=== PATIENT | male | born 1940 | race Caucasian/White ===

== ENCOUNTER 2018-12-08 12:25 | Inpatient (IN) | payer OTHER, MEDICAID ==
[~2018-12-08] VITALS: Ht 160 cm; Wt 69.4 kg
[2018-12-08 12:26] VITALS: BP 176/73
[2018-12-08] MEDS ORDERED: NACL 0.9% 1,000 ML IV ONE (12:35)
--- NOTE | 2018-12-08 12:35 | NUR ---
PATIENT AMBULATED TO BED 5.
[2018-12-08 13:06] LABS: BASOPHILS % (AUTO) 0.1 % (0.0-2.0); HEMATOCRIT 49.4 % (36-52); HEMOGLOBIN 16.3 g/dL (12.0-18.0); LYMPHOCYTES # (AUTO) 0.7 K/uL (2.0-11.5); LYMPHOCYTES % (AUTO) 4.5 % (20.5-51.1); MEAN CORPUSCULAR HEMOGLOBIN 29 pg (27-31); MEAN CORPUSCULAR HGB CONC 33 g/dL (33-37); MONOCYTES % (AUTO) 6.2 % (1.7-9.3); NEUTROPHILS # (AUTO) 14.8 K/uL (1.8-7.7); NEUTROPHILS % (AUTO) 89.2 % (42.2-75.2); PLATELET COUNT (AUTO) 155 K/uL (140-450); RED BLOOD CELL COUNT(AUTO) 5.56 MIL/uL (4.20-6.10); RED CELL DISTRIBUTION WIDTH 14.4 % (11.6-13.7); WHITE BLOOD COUNT (AUTO) 16.6 K/uL (4.8-10.8)
--- NOTE | 2018-12-08 13:06 | NUR ---
referred by pmd for ultrasound. BIB c/o abdominal distention x 2 days. DENIES N/V. hiccups last bowel movement yesterday , denies straining.hx--dm, mi (2018), htn.ABD: DISTENTION C/O ABDOMINAL PAIN OF 9/10 AT THIS TIME. PATIENT POSITIONED FOR COMFORT; HOB ELEVATED; BEDRAILS UP X1; BED DOWN. ER MD MADE AWARE OF PT STATUS.
--- NOTE | 2018-12-08 13:33 | NUR ---
BP / NOTIFIED DR LA.
[2018-12-08 13:37] LABS: ANION GAP 21.4 (8-16); CARBON DIOXIDE 19.3 mmol/L (21-32); CHLORIDE 89 mmol/L (98-107); POTASSIUM 4.7 mmol/L (3.5-5.1); SODIUM SERUM 125 mmol/L (136-145)
[2018-12-08 13:38] LABS: GLUCOSE 633 mg/dL (74-106)
[2018-12-08 13:40] LABS: CREATININE 1.9 mg/dL (0.7-1.3); UREA NITROGEN, BLOOD 43 mg/dL (7-18)
[2018-12-08 13:41] LABS: ALBUMIN 3.3 g/dL (3.4-5.0); ASPARTATE AMINOTRANSFERASE 120 U/L (15-37)
[2018-12-08 13:46] LABS: LIPASE 545 U/L (73-393)
--- NOTE | 2018-12-08 14:13 | NUR ---
X RAY AT BEDSIDE
[2018-12-08] MEDS ORDERED: INSULIN REGULAR, HUMAN 100 UNIT/ML VIAL IV ONE (14:25)
[2018-12-08] MEDS ORDERED: MORPHINE SULFATE 4 MG/ML SYR IVP ONE (15:00)
--- NOTE | 2018-12-08 15:30 | NUR ---
UNABLE TO UPDATE PT'S MEDICATION RECONCILIATION. FAMILY MEMBER WILL BRING LIST OF MEDICATIONS SOON POSSIBLE.
--- NOTE | 2018-12-08 15:30 | NUR ---
Patient appears to be resting comfortably in bed. BP 147/92, P 125/MINS , Respirations even and unlabored. ABD PAIN 4/10 AT THIS TIME. WILL CONTINUE TO MONITOR.
[2018-12-08] MEDS ORDERED: DEXTROSE 50% 50 ML SYR IVP PRN (16:15)
[2018-12-08] MEDS ORDERED: DOCUSATE SODIUM 250 MG GELCAP PO PRN (16:20)
[2018-12-08] MEDS ORDERED: LORazepam 2 MG/ML VIAL IVP PRN (16:20)
[2018-12-08] MEDS ORDERED: POTASSIUM CHLORIDE 40 MEQ, LIDOCAINE 1% 25 MG in NACL 0.9% 250 ML IV PRN (16:20)
[2018-12-08] MEDS ORDERED: ACETAMINOPHEN 325 MG TAB PO PRN (16:20)
[2018-12-08] MEDS ORDERED: MAG SULF 2000 MG/WATER PREMIX 50 ML IV PRN (16:20)
[2018-12-08] MEDS ORDERED: IPRATROPIUM 0.02% 0.5 MG/2.5 ML NEBU INH PRN (16:20)
[2018-12-08] MEDS ORDERED: ZOLPIDEM 5 MG TAB PO PRN (16:20)
[2018-12-08] MEDS ORDERED: diphenhydrAMINE 50 MG/ML VIAL IVP PRN (16:20)
[2018-12-08] MEDS ORDERED: guaiFENesin DM 200/20 MG-10 ML 10 ML UDC PO PRN (16:20)
[2018-12-08] MEDS ORDERED: ONDANSETRON 4 MG/2 ML VIAL IVP PRN (16:20)
[2018-12-08] MEDS ORDERED: ALBUTEROL 0.083% 2.5 MG/3 ML NEBU INH PRN (16:20)
[2018-12-08] MEDS ORDERED: POTASSIUM CHLORIDE 10 MEQ TABER PO PRN (16:20)
[2018-12-08] MEDS ORDERED: BISACODYL 10 MG SUPP RC PRN (16:20)
[2018-12-08] MEDS ORDERED: SODIUM PHOSPHATE 118 ML ENEM RC PRN (16:20)
[2018-12-08] MEDS ORDERED: ACETAMINOPHEN 650 MG SUPP RC PRN (16:20)
[2018-12-08] MEDS ORDERED: MAGNESIUM OXIDE 400 MG TAB PO PRN (16:20)
--- NOTE | 2018-12-08 16:22 | NUR ---
PATIENT ARRIVED FROM ER VIA WHEELCHAIR. PATIENT AMBULATED TO BED ON STEADY GAIT. PATIENT AOX4, POLISH SPEAKING. SHIMA BROUGHT IN HIS MEDICATIONS. RESPIRATIONS EVEN AND UNLABORED ON ROOM AIR. NO S/S OF DISTRESS OR SOB NOTED. PATIENT DENIES PAIN AT THE MOMENT. ORIENTED PATIENT TO ROOM, CALL LIGHT, BATHROOM, AND TV. MRSA SCREENING DONE. UPDATED BOARD. VERBALIZED PLAN OF CARE TO PATIENT AND HIS . THEY VERBALIZED UNDERSTANDING. SAFETY PRECAUTIONS IN PLACE, CALL LIGHT WITHIN REACH, WILL CONTINUE TO MONITOR PATIENT.
[2018-12-08 16:35] VITALS: BP 167/94
[2018-12-08] MEDS ORDERED: CLOP75TA55 PO (16:51)
[2018-12-08] MEDS ORDERED: CHOL200072 PO (16:51)
[2018-12-08] MEDS ORDERED: INSU100S22 SUBQ (16:51)
[2018-12-08] MEDS ORDERED: SIMV80TA1 PO (16:51)
[2018-12-08] MEDS ORDERED: FINA5TAB5 PO (16:51)
[2018-12-08] MEDS ORDERED: ESCI10TA61 PO (16:51)
[2018-12-08] MEDS ORDERED: ZET10 PO (16:51)
[2018-12-08] MEDS ORDERED: METO25TE2 PO (16:51)
[2018-12-08] MEDS ORDERED: CANA100T PO (16:51)
[2018-12-08] MEDS ORDERED: TAMS0.4C96 PO (16:51)
[2018-12-08] MEDS: glyBURIDE 5 MG TAB PO SCH (17:00)
--- NOTE | 2018-12-08 17:07 | NUR ---
MED RECON DONE. PAGED DR. VELAZCO FOR FURTHER ADMIT ORDERS. WILL WAIT FOR HIS CALL BACK. PATIENT RESTING IN BED, VS WNL. WILL CONTINUE TO MONITOR PATIENT.
[2018-12-08] MEDS: BLOOD GLUCOSE MONITORING 1 DEV DEV FS SCH ×2 (17:17→20:55)
--- NOTE | 2018-12-08 17:34 | NUR ---
[facility], PATIENT'S PREFERRED PHARMACY AT [phone] TO VERIFY VACCINATIONS. PNA VACCINE RECEIVED IN 2019, NO RECORD OF FLU VACCINE. RN VERBALIZED UNDERSTANDING.
[2018-12-08] MEDS: INSULIN LISPRO SLIDING SCALE 100 UNITS/ML VIAL SUBQ PRN ×2 (17:51→21:07)
--- NOTE | 2018-12-08 17:51 | NUR ---
BLOOD SUGAR 412, COVERAGE GIVEN. PATIENT TOLERATED IT WELL. CALLED DIETARY FOR DIET ORDER. PATIENT HAS NO COMPLAINTS AT THIS TIME. SAFETY PRECAUTION IN PLACE, CALL LIGHT WITHIN REACH, WILL CONTINUE TO MONITOR PATIENT.
--- NOTE | 2018-12-08 17:55 | NUR ---
PAGED DR. VELAZCO TO FOLLOW UP. DR DRIVER CASINO ENFORCEMENT AGENT. DR DRIVER CALLED BACK, DIET ORDER IN, INFORMED MD ABOUT PATIENT'S BLOOD SUGAR. WILL CONTINUE TO MONITOR PATIENT.
--- NOTE | 2018-12-08 18:35 | NUR ---
ASSESSMENT COMPLETED, LANGUAGE PHONE USED, [employer] TECHNICIAN GILBERT # [id number]. PATIENT'S EXWIFE BROUGHT HOME MEDICATIONS. SHE LEFT TO GO HOME. CALLED HER TO COME MANAGER LOSS PREVENTION MEDICATIONS, SHE STATED SHE WILL BE BACK TOMORROW TO PICK THEM UP. RN VERBALIZED UNDERSTANDING. PATIENT'S MEDICATIONS BROUGHT TO PHARMACY, PATIENT AWARE AND AGREEABLE. WILL CONTINUE TO MONITOR PATIENT.
[2018-12-08] MEDS ORDERED: NACL 0.45% 1,000 ML IV SCH (19:00)
--- NOTE | 2018-12-08 19:24 | NUR ---
REPORT GIVEN TO HOMICIDE DETECTIVE RN AT BEDSIDE FOR CONTINUITY OF CARE. DR VELAZCO IN TO SPEAK TO THE PATIENT. PATIENT IN STABLE CONDITION.
--- NOTE | 2018-12-08 19:25 | NUR ---
RECEIVED PT IN STABLE CONDITION FROM AM NURSE. AWAKE, ALERT AND ORIENTED X4. ON MED SURG. WITH NO ACUTE DISTRESS NOR DISCOMFORT NOTED. HAS HL ON THE RT AC g#20 ,CLEAR AND PATENT. PLAN OF CARE DISCUSSED AND VERBALIZED UNDERSTANDING. BED ON LOW POSITION, SIDE RAILS UP X2. CALL LIGHT AND URINAL PLACED WITHIN EASY REACH. WILL CONTINUE TO MONITOR.
[2018-12-08 20:40] VITALS: BP 161/97
[2018-12-08] MEDS: METOPROLOL 25 MG TAB PO SCH (20:43)
[2018-12-08 20:44] LABS: APPEARANCE,URINE CLEAR (CLEAR); BILIRUBIN,URINE NEGATIVE (NEGATIVE); BLOOD, URINE 1+ (NEGATIVE); COLOR,URINE YELLOW (YELLOW); LEUKOCYTE ESTERASE ,URINE NEGATIVE (NEGATIVE); NITRITE, URINE NEGATIVE (NEGATIVE); PH,URINE 5.5 (5.0-9.0); UGLUCOSE 3+ (NEGATIVE)
[2018-12-08] MEDS: NACL 0.9% 1,000 ML IV SCH (20:55)
[2018-12-08 20:59] LABS: RBC,URINE 0-5 /HPF (0-5); WBC,URINE NONE SEEN /HPF (0-5)
[2018-12-08] MEDS ORDERED: INSULIN LANTUS 100 UNITS/ML 10 ML VIAL SUBQ SCH (21:00)
[2018-12-08] MEDS ORDERED: SIMVASTATIN 40 MG TAB PO SCH (21:00)
--- NOTE | 2018-12-08 21:07 | NUR ---
BLOOD SUGAR WAS CHECKED RESULT 341. INSULIN COVERAGE HUMALOG 8 UNITS SUBQ GIVEN. AND ALSO THE SCHEDULED LANTUS. PT PROVIDED DINNER FOR HE HASN'T EATEN YET. WILL CONTINUE TO MONITOR.
--- NOTE | 2018-12-08 21:30 | NUR ---
PT DONE EATING . TOLERATED WELL. NO C./O ANY PAIN NOTED. WILL CONTINUE TO MONITOR.
--- NOTE | 2018-12-08 23:00 | NUR ---
MADE ROUNDS. ASLEEP. NO S/S OF ANY DISCOMFORT NOR PAIN NOTED.
[2018-12-09] VITALS: BP 158/82
--- NOTE | 2018-12-09 01:30 | NUR ---
MADE ROUNDS. NO S/S OF ANY DISTRESS NOR DISCOMFORT NOTED. WILL CONTINUE TO MONITOR.
--- NOTE | 2018-12-09 03:00 | NUR ---
PT ASLEEP. NO DISTRESS NOTED. WILL CONTINUE TO MONITOR.
--- NOTE | 2018-12-09 04:30 | NUR ---
PT UP ON THE SIDE OF THE BED. HE SAID HE NEEDS SOME BLANKET. PROVIDED AND ROOM TEMP ADJUSTED.
[2018-12-09] MEDS: NACL 0.9% 1,000 ML IV SCH ×2 (05:45→15:52)
[2018-12-09] MEDS: BLOOD GLUCOSE MONITORING 1 DEV DEV FS SCH ×3 (06:31→16:48)
[2018-12-09] MEDS: INSULIN LISPRO SLIDING SCALE 100 UNITS/ML VIAL SUBQ PRN ×3 (06:32→16:49)
--- NOTE | 2018-12-09 06:35 | NUR ---
BLOOD SUGAR WAS CHECKED RESULT 228. INSULIN COVERAGE GIVEN SUBQ.
[2018-12-09 07:07] LABS: ALBUMIN 2.8 g/dL (3.4-5.0); ANION GAP 12.8 (8-16); ASPARTATE AMINOTRANSFERASE 90 U/L (15-37); CHLORIDE 98 mmol/L (98-107); CHOL/HDL RATIO 2.7 (1-4.5); GLUCOSE 222 mg/dL (74-106); MAGNESIUM 2.3 mg/dL (1.8-2.4); POTASSIUM 4.8 mmol/L (3.5-5.1); SODIUM SERUM 132 mmol/L (136-145); TOTAL BILIRUBIN 1.6 mg/dL (0.0-1.0); UREA NITROGEN, BLOOD 29 mg/dL (7-18)
[2018-12-09 07:10] LABS: PHOSPHORUS 2.1 mg/dL (2.5-4.9)
--- NOTE | 2018-12-09 07:15 | NUR ---
ENDORSED PT IN STABLE CONDITION TO AM NURSE FOR CONTINUITY OF CARE.
--- NOTE | 2018-12-09 07:17 | NUR ---
RECEIVED BEDSIDE REPORT FROM CONSULTING ENGINEER NURSE FOR CONTINUITY OF CARE. PATIENT IS AWAKE AND RESTING ON BED. PATIENT IS AAOX4. PATIENT SPEAKS [place] AND UNDERSTAND MINIMAL SERBIAN. PATIENT IS ABLE TO FOLLOW SIMPLE COMMANDS AND MAKE NEEDS KNOWN. RESPIRATION EVEN AND UNLABORED ON RA. NO SIGNS OF DISTRESS. IV ON RAC 20G, CLEAN AND INTACT, INFUSING PER MD ORDER. SKIN INTACT AND CLEAN. PATIENT IS ABLE TO AMBULATE WITH STANDBY ASSISTANCE AND CONTINENT. URANAL IS BY BEDSIDE.DISCUSSED PLAN OF CARE WITH PATIENT AND PATIENT VERBALIZED OK. SAFETY MEASURES IN PLACE. BED IN LOW POSITION AND CALL LIGHT WITHIN REACH. INSTRUCTED PATIENT TO USE THE CALL LIGHT FOR ANY ASSISTANCE AND PATIENT WAS AWARE.
[2018-12-09 08:00] VITALS: BP 170/85
[2018-12-09] MEDS: glyBURIDE 5 MG TAB PO SCH ×2 (08:19→16:48)
[2018-12-09] MEDS: METOPROLOL 25 MG TAB PO SCH (08:21)
--- NOTE | 2018-12-09 08:24 | NUR ---
PATIENT'S BP 170/85 AND PULSE 94. ADMINISTERED MEDS PER MD ORDER, PATIENT TOLERATED WELL. PATIENT IS SITTING UP AND WATCHING TV ON BED. DENIED PAIN AND SOB. NO SIGNS OF DISTRESS NOTED. SAFETY MEASURES IN PLACE. BED IN LOW POSITION AND CALL LIGHT WITHIN REACH. INSTRUCTED PATIENT TO USE THE CALL LIGHT FOR ANY ASSISTANCE AND PATIENT WAS AWARE.
[2018-12-09 08:27] LABS: BASOPHILS % (AUTO) 0.1 % (0.0-2.0); HEMATOCRIT 44.1 % (36-52); HEMOGLOBIN 14.9 g/dL (12.0-18.0); LYMPHOCYTES # (AUTO) 0.8 K/uL (2.0-11.5); LYMPHOCYTES % (AUTO) 5.3 % (20.5-51.1); MEAN CORPUSCULAR HEMOGLOBIN 30 pg (27-31); MEAN CORPUSCULAR HGB CONC 34 g/dL (33-37); MONOCYTES % (AUTO) 6.8 % (1.7-9.3); NEUTROPHILS # (AUTO) 13.3 K/uL (1.8-7.7); NEUTROPHILS % (AUTO) 87.8 % (42.2-75.2); PLATELET COUNT (AUTO) 125 K/uL (140-450); RED BLOOD CELL COUNT(AUTO) 5.01 MIL/uL (4.20-6.10); RED CELL DISTRIBUTION WIDTH 14.2 % (11.6-13.7); WHITE BLOOD COUNT (AUTO) 15.1 K/uL (4.8-10.8)
[2018-12-09] MEDS ORDERED: FINASTERIDE 5 MG TAB PO SCH (09:00)
[2018-12-09] MEDS ORDERED: ESCITALOPRAM 20 MG TAB PO SCH (09:00)
[2018-12-09] MEDS ORDERED: THIAMINE 200 MG/2 ML VIAL IM SCH (09:00)
[2018-12-09] MEDS ORDERED: FOLIC ACID 1 MG TAB PO SCH (09:00)
[2018-12-09] MEDS ORDERED: INSULIN LANTUS 100 UNITS/ML 10 ML VIAL SUBQ SCH (09:00)
[2018-12-09] MEDS ORDERED: MULTIVITAMIN 1 TAB PO SCH (09:00)
[2018-12-09] MEDS ORDERED: NON-FORMULARY ITEM (Escitalopram Oxalate (Escitalopram Oxalate) 1 TAB) PO SCH (09:00)
[2018-12-09] MEDS ORDERED: TAMSULOSIN 0.4 MG CAP PO SCH (09:00)
[2018-12-09] MEDS ORDERED: INSULIN GLARGINE HUM REC ANLOG 16 UNIT SUBQ SCH (09:00)
[2018-12-09] MEDS ORDERED: CLOPIDOGREL 75 MG TAB PO SCH (09:00)
[2018-12-09] MEDS ORDERED: SIMVASTATIN PO SCH (09:00)
[2018-12-09] MEDS ORDERED: CLOPIDOGREL BISULFATE PO SCH (09:00)
--- NOTE | 2018-12-09 09:17 | NUR ---
PATIENT HAS BEEN SCREENED AND CATEGORIZED MODERATE NUTRITION RISK. PATIENT WILL BE SEEN WITHIN 3-5 DAYS OF ADMISSION. 12/11/18 12/13/[address]
--- NOTE | 2018-12-09 09:40 | NUR ---
PATIENT IS RESTING ON BED AND WATCHING TV AT THIS TIME. NO SIGNS OF DISTRESS NOTED. SAFETY MEASURES IN PLACE. BED IN LOW POSITION AND CALL LIGHT WITHIN REACH. INSTRUCTED PATIENT TO USE THE CALL LIGHT FOR ANY ASSISTANCE AND PATIENT WAS AWARE.
--- NOTE | 2018-12-09 11:48 | NUR ---
VASCULAR PHYSICIAN IS CHANGING PATIENT'S SOILED LINENS AT THIS TIME. PATIENT IS SITTING UP ON THE CHAIR. DENIED PAIN AND SOB. NO SIGNS OF DISTRESS NOTED. SAFETY MEASURES IN PLACE. BED IN LOW POSITION AND CALL LIGHT WITHIN REACH. INSTRUCTED PATIENT TO USE THE CALL LIGHT FOR ANY ASSISTANCE AND PATIENT WAS AWARE.
--- NOTE | 2018-12-09 13:15 | NUR ---
PATIENT IS RESTING ON BED AT THIS TIME. NO SIGNS OF DISTRESS NOTED. SAFETY MEASURES IN PLACE. BED IN LOW POSITION AND CALL LIGHT WITHIN REACH. INSTRUCTED PATIENT TO USE THE CALL LIGHT FOR ANY ASSISTANCE AND PATIENT WAS AWARE.
[2018-12-09] MEDS ORDERED: SODIUM PHOSPHATE 15 MMOLE in NACL 0.9% 250 ML IV SCH (13:30)
--- NOTE | 2018-12-09 13:39 | NUR ---
PER DR BARRIGA, PATIENT IS OK TO DC. INFORMED PATIENT HE WILL BE DC TODAY. PATIENT SAID HE WILL CONTACT HIS TO PICK HIM UP LATER.
--- NOTE | 2018-12-09 14:00 | NUR ---
DISCHARGE DOCUMENT HAS BEEN PREPARED. AWAITING FOR FAMILY TO ARRIVE FOR [employer] TECHN[employer]. PATIENT IS AWAKE AND WATCHING TV ON BED AT THIS TIME. NO SIGNS OF DISTRESS NOTED.SAFETY MEASURES IN PLACE. BED IN LOW POSITION AND CALL LIGHT WITHIN REACH. INSTRUCTED PATIENT TO USE THE CALL LIGHT FOR ANY ASSISTANCE AND PATIENT WAS AWARE.
--- NOTE | 2018-12-09 15:30 | NUR ---
PATIENT IS RESTING ON BED AND AWAITING FOR TO ARRIVE AT THE HOSPITAL. NO SIGNS OF DISTRESS NOTED.SAFETY MEASURES IN PLACE. BED IN LOW POSITION AND CALL LIGHT WITHIN REACH. INSTRUCTED PATIENT TO USE THE CALL LIGHT FOR ANY ASSISTANCE AND PATIENT WAS AWARE.
--- NOTE | 2018-12-09 15:45 | NUR ---
PATIENT IS RESTING ON BED AT THIS TIME. NO SIGNS OF DISTRESS NOTED.SAFETY MEASURES IN PLACE. BED IN LOW POSITION AND CALL LIGHT WITHIN REACH. INSTRUCTED PATIENT TO USE THE CALL LIGHT FOR ANY ASSISTANCE AND PATIENT WAS AWARE.
[2018-12-09 16:00] VITALS: BP 131/80
--- NOTE | 2018-12-09 16:15 | NUR ---
PATIENT IS RESTING ON BED AND AWAITING FOR TO ARRIVE FOR DC. NO SIGNS OF DISTRESS NOTED. SAFETY MEASURES IN PLACE.
--- NOTE | 2018-12-09 16:30 | NUR ---
PATIENT IS CHANGING INTO HIS OWN CLOTHES AT THIS TIME. AWAITING FOR TO ARRIVE FOR DC. NO SIGNS OF DISTRESS NOTED. SAFETY MEASURES IN PLACE.
--- NOTE | 2018-12-09 17:00 | NUR ---
DISCHARGE INSTRUCTION PROVIDED TO PATIENT AND AT BEDSIDE. EDUCATED PATIENT ON FOLLOW UP WITH MD, DISEASE MANAGEMENT, MEDICATION REGIMEN AND SIDE EFFECTS, AND DIET REGIMEN. ANSWERED ALL PATIENT'S AND 'S QUESTIONS. BOTH VERBALIZED UNDERSTANDING. RETURNED PATIENT'S HOME MEDS FROM PHARMACY AND PATIENT VERIFIED AND CONFIRMED ALL MEDS. D/C IV AND CANNULA INTACT AND NO BLEEDING AT IV SITE. REMOVED ALL ARM BANDS. PATIENT CHECKED ALL CABINETS AND TOOK ALL HIS BELONGING. PRESCRIPTION PROVIDED TO PATIENT. ESCORTED PATIENT TO THE FRONT LOBBY WITH WHEELCHAIR. PATIENT IS GOING TO [place] AT THIS TIME AND ACCOMPANIED BY . PATIENT IS IN STABLE CONDITION.
[2018-12-10 17:34] LABS: HEPATITIS B SURFACE ANTIBODY < 10 (0.00 - 0.99)
[2018-12-10 19:27] LABS: HEPATITIS B CORE AB TOTAL NEGATIVE (NEGATIVE); HEPATITIS B SURFACE ANTIBODY NON REACTIVE (NONREACTIVE); HEPATITIS B SURFACE ANTIGEN NEGATIVE (NEGATIVE)
== END 2018-12-09 17:00 | disposition home or self-care (01) | DRG 439 ==
LOC: MED 12:25 → MTU 15:47
PROVIDERS: ADMIT Internal Medicine Pulmonary Disease; ATTEND Internal Medicine Pulmonary Disease
DX: K85.20 Alcohol induced acute pancreatitis without necrosis or infection (principal); N17.9 Acute kidney failure, unspecified; E87.2 Acidosis; M62.82 Rhabdomyolysis; E11.65 Type 2 diabetes mellitus with hyperglycemia; E78.5 Hyperlipidemia, unspecified; E86.0 Dehydration; I10 Essential (primary) hypertension; N40.0 Benign prostatic hyperplasia without lower urinary tract symptoms; D72.829 Elevated white blood cell count, unspecified
CPT/HCPCS: 36415; 71045; 80053; 81001; 82150; 82550; 82553; 82948; 83036; 83690; 83735; 84100; 85025; 86704; 86706; 86708; 86803; 87081; 87340; 93005; 99285; J1815; J2270; J3411; J7030; Q0092